=== PATIENT | male | born 1950 | race Caucasian/White ===

== ENCOUNTER 2016-10-08 14:37 | Inpatient (IN) ==
--- NOTE | 2016-10-08 15:47 | Emergency Department Note ---
Disposition Clinical Impression: Left-sided sensory deficit present Disposition: Admitted As Inpatient Condition: Good Neuro HPI - General Chief Complaint: ED Neuro Symptoms/Deficit Stated Complaint: left leg numbness Time Seen by Provider: 10/08/16 14:42 Source: patient, EMS Limitations: no limitations Nursing Notes Reviewed: Yes Vital Signs Reviewed: Yes - History of Present Illness HPI Narrative: 66-year-old male presents to the emergency department with a chief complaint of left-sided numbness. Yesterday around 2 AM (14 hours) he woke up with severe numbness and heaviness of the left side of his body. He went to a local ER where he had labs drawn and a CT scan of his head and was told everything was normal and was discharged home. He wanted to come back to [place] because [facility] and this is what he preferred to do for follow-up. He reports the heaviness in his arm and leg has improved but he still has significant numbness in his left arm and left leg. He reports numbness in the left chest and left abdomen. No history of stroke in the past. He has a history of prostate cancer that he never had any sort of surgery, chemotherapy or radiation. He has a history of hypertension on lisinopril and amlodipine but no other medical problems or medications. He denies any visual changes. He states he has a chronic droop of the left side of the face due to a significant facial injury and states that it has not changed from baseline. Denies any substernal chest pain, diaphoresis, nausea or vomiting. Denies any pain radiating to his back. - Related Data Home Medications: Home Medications Medication Instructions Recorded Confirmed Aspirin 81 mg PO DAILY PRN 10/08/16 10/08/16 Atorvastatin Calcium [Lipitor] 20 mg PO HS 10/08/16 10/08/16 Calcium Carbonate/Vitamin D3 2 each PO BID 10/08/16 10/08/16 [Calcium 250+D Tablet] Clotrimazole 1% CRM [Lotrimin 1%] 1 appl TP BID 10/08/16 10/08/16 Allergies/Adverse Reactions: Allergies Allergy/AdvReac Type Severity Reaction Status Date / Time IV DYE Allergy Anaphylaxis Uncoded 10/08/16 14:43 All systems ED: reviewed and negative except as stated. Constitutional: Denies: fever Eyes: Denies: vision change Cardiovascular: Denies: chest pain Respiratory: Denies: cough, dyspnea Gastrointestinal: Denies: abdominal pain, nausea, vomiting Musculoskeletal: Denies: back pain, neck pain Integumentary: Denies: rash Neurological: Reports: numbness (Left-sided), paresthesias (Left-sided). Denies : headache, abnormal gait Past Medical History - Past Medical History Attestation: Yes The following information was validated with the patient. Medical history: Reports: cancer, hyperlipidemia, other Psychiatric history: Reports: no psych history - Social History Smoking Status: Former smoker Smokeless Tobacco Status: No Alcohol use: Reports: none Drug use: Reports: none Physical Exam General: Appears well, alert and oriented x 3 Cardiovascular: Regular rate and rhythm. S1, S2. No murmurs, rubs or gallops. Respiratory: Breath sounds clear bilaterally. No wheezing, rales or rhonchi. No resp distress Abdomen: Soft, nontender. No guarding, rebound or rigidity. Eyes: Left-sided eye droop. EOMI. Pupils equally reactive to light both direct and consensual HENT: No oral mucosal lesions. Moist mucous membranes Neuro: Slight left corner of the mouth droop, slight upper eyelid droop but patient states this is baseline. Normal wrinkles of the forehead and facial muscles when smiling. Strength is very symmetric at the shoulder, elbow, wrist , hip, knee, ankle. He reports diffuse decreased sensation particularly throughout the leg, abdomen and left arm that does not cross midline. He even has some mild sensory deficits of the left face. Musculoskeletal: No joint tenderness or swelling Skin: No lesions. No diaphoresis. Normal turgor. Normal color Psych: Appropriate - General Limitations: no limitations General appearance: alert, in no apparent distress Course Course Narrative: At this time I am concerned patient has suffered a cerebrovascular event affecting the sensory distribution. He has diffuse left-sided numbness. He took 4 baby aspirins about 14 hours ago. Patient is not a TPA candidate because he is far outside of the 3 hour window. Vital Signs Temperature 97.8 F 10/08/16 14:43 Pulse Rate 72 10/08/16 14:43 Respiratory Rate 18 10/08/16 14:43 Blood Pressure 156/106 10/08/16 14:43 O2 Sat by Pulse Oximetry 100 10/08/16 14:43 Temperature 97.8 F 05/12/17 17:37 Pulse Rate 76 10/08/16 17:39 Respiratory Rate 18 10/08/16 17:39 Blood Pressure 159/101 10/08/16 17:39 O2 Sat by Pulse Oximetry 95 10/08/16 17:37 Oxygen Delivery Oxygen Delivery Room Air Neuro Symptoms/Deficit - MDM Narrative Medical decision making narrative: EKG shows sinus rhythm with a rate of 60 bpm. There is no ST elevation or depression. OR, QRS, QT interval within normal limits. T-wave flattening in lead 3. Troponin was drawn at the [facility] which was 0. NIH Stroke Scale - Level of Consciousness LOC: Alert - LOC Questions LOC Questions: Answers both correctly - LOC Commands LOC Commands: Performs both correctly - Best Gaze Best Gaze: Normal - Visual Visual: No visual loss - Facial Palsy Facial Palsy: Minor asymmetry on smiling, flattened nasolabial fold - Motor Arms Motor Arm-Left: No drift for 10 seconds Motor Arm-Right: No drift for 10 seconds - Motor Legs Motor Leg-Left: No drift for 5 seconds Motor Leg-Right: No drift for 5 seconds - Limb Ataxia Limb Ataxia: Absent of affected limb too weak to perform exam - Sensory Sensory: Normal - Best Language Best Language: No aphasia - Dysarthria Dysarthria: Normal - Extinction and Inattention Extinction and Inattention: Normal - NIHSS Total Score NIHSS Total Score: 1 Attestation Statement - Attestation Attestation: I examined this patient and my medical decision-making was reviewed with the RN NAVIGATOR/PA/Advanced Practice Nurse/Resident Physician. I agree with the documented findings, disposition and treatment plan as described except to the extent set forth below. 66-year-old male presents EDB has a left-sided numbness. Last evening he developed onset of numbness and heaviness of his left arm, face, leg. He was seen at an outside facility in [place]. He underwent CT of his head which was negative for any acute process and he was discharged home. He presented to the [facility] in [place] today because of ongoing heaviness and numbness of his left side. They transferred him here for neurology evaluation. Currently he states the weakness is improved. He denies any focal pain. Describes worsening paresthesia of his left arm and left leg. Denies any neck pain. No headache. No visual disturbances. No difficulty swallowing. No speech trouble. No chest pain or dyspnea. No recent trauma. Generally well-appearing male in no apparent distress. He is talkative and interactive. Pupils are reactive to light. Extraocular motor intact. Oropharynx is clear. Tongue and uvula are midline. Neck supple without adenopathy. No bruits are appreciated. Chest is clear to auscultation bilaterally. Cardiac exam regular. Abdomen soft non-distended, non-tender. Neurologically has diminished sensation in nondermatomal distribution on his left leg and left torso. No strength deficits are appreciated. He has no pronator drift. He is admitted to the hospital for further evaluation of CVA.
[2016-10-08] MEDS ORDERED: Ondansetron 4 MG/2 ML VIAL IVP PRN (16:59)
[2016-10-08] MEDS ORDERED: Acetaminophen 325 MG TABLET PO PRN (16:59)
[2016-10-08] MEDS ORDERED: MOM Conc 10 ML UD.LIQ PO PRN (16:59)
[2016-10-08] MEDS ORDERED: Mag Hydrox/Al Hydrox/Simeth 30 ML UDC PO PRN (16:59)
[2016-10-08] MEDS ORDERED: Naloxone 0.4 MG/ML INJ IVP PRN (16:59)
[2016-10-08] MEDS ORDERED: Aspirin 81 MG TAB.CHEW PO PRN (17:01)
--- NOTE | 2016-10-08 18:23 | Internal Med History&Physical ---
Date of Encounter: 10/08/16 Time of Encounter: 18:15 Assessment and Plan (1) CVA (cerebral vascular accident) Current visit: Yes Status: Suspected Pt appears to have had an acute CVA most likely related to HTN and HLD. He is not consistently taking his meds so will place on ASA 325mg daily (he took early this AM). Statin. Lipid panel. PT/OT Check MRI/MRA and carotid duplex. Echocardiogram. Telemetry. Neuro consult. Qualifiers: CVA mechanism: thrombosis Precerebral and cerebral artery: middle cerebral artery Laterality of affected vessel: left Qualified Code(s): I63.312 - Cerebral infarction due to thrombosis of left middle cerebral artery (2) HTN (hypertension) Current visit: Yes Status: Chronic Will allow some measure of permissive hypertension. Qualifiers: Hypertension type: essential hypertension Qualified Code(s): I10 - Essential (primary) hypertension (3) HLD (hyperlipidemia) Current visit: Yes Status: Chronic Lipid panel in AM. Statin. Qualifiers: Hyperlipidemia type: unspecified Qualified Code(s): E78.5 - Hyperlipidemia , unspecified (4) Prostate cancer Current visit: Yes Status: Chronic Has had no prior treatment. (5) Arthritis Current visit: Yes Status: Chronic Internal Medicine - H&P: HPI Chief complaint: L side numbness Admitted From: Emergency Dept Plans for Post Hospital Care: Home History of present illness: Mr. Gautam is a 66 year old male with hx of HTN and HLD presented to ED from [place] with complaints of L side numbness and heaviness. He noticed the symptoms about midnight last night. He was in [place] and went to an ED. There he had CT and blood work and was told not a stroke (per patient). His symptoms persisted and he drove home and went to [place] here. He was then sent to ED. Here in ED he was evaluated and admitted for presumptive stroke. Currently patient is still experiencing persistent numbness and heaviness on his whole L side. He also says he has been dropping things with his L hand. Pt denies prior history of similar event. He has hx of trauma to his L face and has chronic droop to his mouth and eye. He is to take antihypertensive and cholesterol meds as well as ASA but does not take these regularly. He denies chest pain or SOB. No difficulty swallowing. No difficulty with ambulation. Says the feeling seems to "go up and down" but never goes totally away. [facility] [place] BP in ED was 184/116. CT neg for acute process in brain. Given Norvasc 10mg and Lisinopril 10mg prescriptions. BP at discharge from ED was 158/96. Past Med Surg Social Fam HX - Past Medical History Source: patient, old records reviewed, nursing notes reviewed Medical history: arthritis, cancer (Prostate cancer - was told to have surgery but he did not want.), hyperlipidemia, hypertension, other Psychiatric history: no psych history - Past Surgical History Surgical History: no surgical history - Social History Smoking Status: Former smoker Smokeless Tobacco Status: No Alcohol use: none Drug use: none Occupational status: retired Current living situation: Home - Independent Activity Level: Independent ambulation Recent Out of Country Travel Within the Last 8 Weeks: No Exposure or Possible Exposure to Illness During Travel: No - Family History Mother Living Status: Cause of : Pancreatic and liver cancer Hx Family Cancer: Yes Father Living Status: Still Living (Patient says has no med issues.) Brother Hx Family Cardiac Disorders: Yes (thoracic aneurysm) Internal Medicine - H&P: Meds Aspirin 81 mg PO DAILY PRN 10/08/16 [History] Atorvastatin Calcium [Lipitor] 20 mg PO HS 10/08/16 [History] Calcium Carbonate/Vitamin D3 [Calcium 250+D Tablet] 2 each PO BID 10/08/16 [ History] Clotrimazole 1% CRM [Lotrimin 1%] 1 appl TP BID 10/08/16 [History] Allergies IV DYE Allergy (Uncoded 10/08/16 14:43) Anaphylaxis All Systems PM: A 10-system review of systems was performed and is negative for pertinent findings except as documented above in the HPI. - Constitutional Constitutional: no anorexia, no falls, no weakness - EENT Eyes: no blurry vision, no change in vision, no diplopia Ears: no decreased hearing, no ear pain Nose, mouth and throat: no change in voice, no dysphagia, no neck pain - Cardiovascular Cardiovascular ROS IM: no chest pain, no claudication, no diaphoresis, no dyspnea on exertion, no orthopnea, no palpitations - Respiratory Respiratory: no dyspnea, no hemoptysis, no wheezing, no pain on inspiration - Gastrointestinal Gastrointestinal: no abdominal pain, no change in bowel habits, no change in stool character, no hematemesis, no hematochezia, no melena, no odynophagia - Genitourinary Genitourinary ROS male: no difficulty urinating Additional comments: Has hx of prostate cancer. - Musculoskeletal Musculoskeletal ROS IM: back pain (Chronic low back pain), no arthralgias, no joint swelling, no limited range of motion - Integumentary Integumentary IM: no erythema, no new lesions - Neurological Neurological ROS: headache(s), numbness, paresthesias, tingling, no confusion, no disequilibrium, no loss of vision - Psychiatric Psychiatric: as per HPI - Endocrine Endocrine IM: as per HPI - Hematologic/Lymphatic Hematologic/Lymphatic: as per HPI - Allergic/Immunologic Allergic/Immunologic: as per HPI - Constitutional Vitals: Temp Pulse Resp BP Pulse Ox 97.8 F 76 18 159/101 95 10/08/16 17:37 10/08/16 17:39 10/08/16 17:39 10/08/16 17:39 10/08/16 17:37 General appearance: Present: mild distress, A&O X 3, answers questions appropriately - Head Head exam: Present: normocephalic Additional comments: Chronic changes to L face - unchanged per patient. - Eye Eye exam: Present: conjuntiva pink, sclera anicteric. Absent: periorbital swelling, periorbital tenderness Pupils: Present: PERRL Additional comments: L lid drooped slightly. - ENT ENT exam: Present: mucous membranes moist - Respiratory Respiratory exam: Present: CTAB. Absent: rales, rhonchi, wheezes - Cardiovascular Cardiovascular exam: Present: RRR. Absent: systolic murmur, tachycardia - GI/Abdominal GI/Abdominal exam: Present: normal bowel sounds, soft. Absent: mass, tenderness - Extremities Exam Extremities exam: Present: warm. Absent: pedal edema, tenderness - Neurological Exam Neurological exam: Present: alert, oriented X3 Additional comments: Decreased sensation to L face, arm and leg. NIH 1. No ataxia noted. Strength appears to be equal. - Psychiatric Psychiatric exam: Present: anxious - Skin Skin exam: Present: dry, warm. Absent: rash - VTE Documentation of Mechanical Device: Intermittent pneumatic compression device
[2016-10-08] MEDS: (Calcium Carbonate/Vitamin D3 [Calcium 250+D Tablet] ) PO SCH (21:56)
[2016-10-09 04:44] LABS: Basophils % 0.6 %; Eosinophils # 0.2 K/mcL (0.0-0.6); Eosinophils % 2.9 %; Hematocrit 44.2 % (37.5-50.1); Hemoglobin 14.8 g/dL (12.9-16.9); Immature Granulocytes % 0.4 % (0-4); Lymphocytes # 1.1 K/mcL (0.6-4.6); Lymphocytes % 21.1 %; Mean Corpuscular HGB Conc 33.5 g/dL (31.6-35.5); Mean Corpuscular Hemoglobin 29.6 pg (28.0-33.3); Mean Corpuscular Volume 88.4 fL (83.0-100.0); Mean Platelet Volume 10.4 fL (9.4-12.4); Monocytes # 0.5 K/mcL (0.0-1.3); Monocytes % 10.3 %; Neutrophils # 3.3 K/mcL (1.6-8.9); Platelet Count 188 K/mcL (140-400); Segmented Neutrophils % 64.7 %
[2016-10-09 05:03] LABS: Alanine Aminotransferase 32 Units/L (0-55); Albumin 3.5 g/dL (3.5-5.0); Albumin/Globulin Ratio 1.2 (1.1-2.2); Alkaline Phosphatase 80 Units/L (38-126); Aspartate Amino Transferase 24 Units/L (5-34); BUN/Creatinine Ratio 17 (6-26); Bilirubin,Total 0.7 mg/dL (0.2-1.2); Blood Urea Nitrogen 16 mg/dL (8-26); Calcium 8.9 mg/dL (8.6-10.8); Carbon Dioxide 27 mEq/L (19-29); Chloride 104 mEq/L (98-109); Chol/HDL Ratio 5.4 (0-4.9); Cholesterol 273 mg/dL (< 200); Globulin 2.9 g/dL (2.4-3.5); Glucose 125 mg/dL (70-99); HDL Cholesterol 51 mg/dL (40-59); LDL Cholesterol,Calculated 193 mg/dL (0-99); Magnesium 2.1 mg/dL (1.6-2.6); Osmolality,Calculated 291 (280-300); Potassium 3.9 mEq/L (3.5-4.5); Sodium 139 mEq/L (136-145); Total Protein 6.4 g/dL (6.0-8.3); Triglycerides 144 mg/dL (< 150); eGFR For African Americans > 60 (> 60); eGFR For Non-African Americans > 60 (> 60)
[2016-10-09] MEDS ORDERED: *HR* Enoxaparin 30 MG/0.3 ML SYRINGE SQ SCH (06:00)
[2016-10-09] MEDS ORDERED: Aspirin 325 MG TABLET PO SCH (09:00)
[2016-10-09] MEDS: (Calcium Carbonate/Vitamin D3 [Calcium 250+D Tablet] ) PO SCH (10:03)
--- NOTE | 2016-10-09 10:52 | Neurosurgical History&Physical ---
Date of Encounter: 10/09/16 Time of Encounter: 10:37 Assessment and Plan (1) CVA (cerebral vascular accident) Current visit: Yes Status: Suspected Right thalamic lacunar infacrt. Likely secondary to multiple factors: hypertension, hyperlipidemia, ?medical incompliace? Agree with increasing lipitor to 80, will add niacin. Needs outpatient neurology follow-up with DR. George. 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 Amitriptyline and gabapentin are good choices. Given that he also seems to have an early neuropathy, gabapentin may be a first choice trial, 300 qhs as a startig dose, to go to 300 tid final. If needed can be fine tuned in the outpatient setting or changed to amitriptyline. History of Present Illness Chief complaint: left-sided numbness, weird feeling HPI: Mr. Gautam is a 66 year old male with prior history of "pre-diabetes", TIAs, ?stroke, with hypertension, hyperlipidemia, who had a sudden episode of half body numbness that started yesterday when he was driving from [place]. Initially, he went to an ER in [place], where they said nothing was wrong(?). [facility] and he was told that he may have had a stroke and was sent to [place] ER. he was outside the stroke window for treatment, per ER. He described his sensations on the left to be a "stiff feeling of arms", not necessarily weak, but a "feeling of arms and legs and torso and face falling asleep and waking up", like pins and needles, that "exactly" split the half of his body, the left being affected. He lives by himself. And he has been on 20 mg lipitor at home , prior to this. He took 4 baby Aspirins yesterday when it happened. He got CTH and MRI brain done overnight yesterday here. He state that today, he is fine and back to normal. He states that he has had face trauma (left) and that he has a mild droop on the left side all the time. Past Med Surg Social Fam HX - Past Medical History Medical history: cancer, CVA (questionable), hyperlipidemia, TIA, other Psychiatric history: no psych history - Past Surgical History Surgical History: no surgical history - Social History Smoking Status: Former smoker Smokeless Tobacco Status: No Alcohol use: none Drug use: none Occupational status: retired Current living situation: Home - Independent Activity Level: Independent ambulation Recent Out of Country Travel Within the Last 8 Weeks: No Exposure or Possible Exposure to Illness During Travel: No - Family History Mother Living Status: Cause of : Pancreatic and liver cancer Hx Family Cancer: Yes Father Living Status: Still Living (Patient says has no med issues.) Brother Hx Family Cardiac Disorders: Yes (thoracic aneurysm) Medications and Allergies Aspirin 81 mg PO DAILY PRN 10/08/16 [History] Atorvastatin Calcium [Lipitor] 20 mg PO HS 10/08/16 [History] Calcium Carbonate/Vitamin D3 [Calcium 250+D Tablet] 2 each PO BID 10/08/16 [ History] Clotrimazole 1% CRM [Lotrimin 1%] 1 appl TP BID 10/08/16 [History] Allergies IV DYE Allergy (Uncoded 10/08/16 14:43) Anaphylaxis All Systems: A 10-system review of systems was performed and is negative for pertinent findings except as documented above in the HPI. - Constitutional Constitutional ROS IM: as per HPI, no chills, no fever(s), no weakness - Integumentary Integumentary IM: as per HPI - Neurological Neurological ROS: numbness (left side), paresthesias (left side), sensory deficit (left side), tingling (left side) Physical Examination - Vital Signs Vital Signs: Initial Vital Signs Temp Pulse Resp BP Pulse Ox 97.8 F 72 18 156/106 100 10/08/16 14:43 10/08/16 14:43 10/08/16 14:43 10/08/16 14:43 10/08/16 14:43 Vital Signs - 24 hr 10/08/16 14:43 10/08/16 15:17 10/08/16 16:42 Temperature 97.8 F Pulse Rate 72 61 Respiratory Rate 18 18 18 Blood Pressure 156/106 145/98 135/90 O2 Sat by Pulse Oximetry 95 95 10/08/16 17:37 10/08/16 17:39 10/09/16 00:00 Temperature 97.8 F 98.1 F Pulse Rate 64 76 63 Respiratory Rate 15 18 18 Blood Pressure 159/101 137/103 O2 Sat by Pulse Oximetry 95 95 10/09/16 04:00 10/09/16 06:58 Temperature 97.6 F 98.2 F Pulse Rate 64 66 Respiratory Rate 16 18 Blood Pressure 129/84 156/97 O2 Sat by Pulse Oximetry 95 96 - Constitutional General appearance: comfortable - Neurologic Sensorimotor examination: intact (left hemisensory syndrome) Detailed motor examination: full strength in all major muscle groups Motor examination - right side: 5/5: deltoids, biceps, triceps, wrist flexion, wrist extension, automatic vulcanizing operator, hip flexors, tibialis Anterior, quadriceps, toe extension (EHL), plantarflexion Motor examination - left side: 5/5: deltoids, biceps, triceps, wrist flexion, wrist extension, hip flexors, automatic vulcanizing operator, quadriceps, tibialis Anterior, toe extension (EHL), plantarflexion Detailed sensory examination: light touch (left hemisensory syndrome), pain ( left hemisensory syndrome), temperature (normal), vibration (normal), position sense (decreased distally) Reflex and gait examination: intact Reflexes: Biceps: 2+ (asymmetric hyper-reflexia on the left), Triceps: 2+ ( asymmetric hyper-reflexia on the left), Brachioradialis: 2+ (asymmetric hyper- reflexia on the left), Patella: 2+ (asymmetric hyper-reflexia on the left), Achilles: 2+ (asymmetric hyper-reflexia on the left) Mental Status Examination: awake, alert, oriented to person, oriented to place, oriented to time, follows commands appropriately, answers questions appropriately, no agnosia, no aphasia, no aproxia Cranial nerve examination: PERRL, EOMI, visual jaquez intact, corneal reflexes brisk symmetrically, sensory to face intact, mastication intact, no facial asymmetry is present, no dysarthria, hearing is intact symmetrically, soft palate elevates bilaterally upon phonation, gag reflex intact, flexes SCM and trapezius muscles symmetrically with full power, tongue protrudes midline, no atrophy or facial fasiculations present Cerebellar examination: no dysmetria, performs finger to nose and heel to montero symmetrically without ataxia, no gait ataxia, no truncal ataxia, no difficulty with rapid alternating movements Results - Laboratory Findings CBC and BMP: 10/09/16 03:40 10/09/16 03:40 Abnormal lab findings: Abnormal lab results Glucose 125 mg/dL (70-99) H 10/09/16 03:40 Cholesterol 273 mg/dL (< 200) H 10/09/16 03:40 LDL Cholesterol, Calc 193 mg/dL (0-99) H 10/09/16 03:40 Cholesterol/HDL Ratio 5.4 (0-4.9) H 10/09/16 03:40 - Diagnostic Findings Additional findings: Brain MRI 10/08/16 17:07 IMPRESSION: 1. Acute ischemic lacunar infarct in the right thalamus. 2. No intracranial hemorrhage or mass effect. 3. Mild chronic white matter microvascular ischemic changes. 4. Absent signal in the visualized distal cervical through proximal intracranial right vertebral artery concerning for high-grade proximal stenosis or occlusion. CT angiogram of the neck is recommended for further evaluation. D/ / Ravinder Begum MD / Ravinder Begum MD Interpreting Provider: Ravinder Begum MD Head MRA 10/08/16 17:07 IMPRESSION: 1. Acute ischemic lacunar infarct in the right thalamus. 2. No intracranial hemorrhage or mass effect. 3. Mild chronic white matter microvascular ischemic changes. 4. Absent signal in the visualized distal cervical through proximal intracranial right vertebral artery concerning for high-grade proximal stenosis or occlusion. CT angiogram of the neck is recommended for further evaluation. D/ / Ravinder Begum MD / Ravinder Begum MD Interpreting Provider: Ravinder Begum MD - VTE Documentation of Mechanical Device: Intermittent pneumatic compression device
[2016-10-09 11:03] VITALS: BP 153/111
--- NOTE | 2016-10-09 12:28 | Carotid Imaging Report ---
Carotid Duplex Patient Name:All Gautam Order Number:[id number] Procedure Date:10/09/2016 Date:8Age:66 yrs Gender:Male Rt.BP:156 / 97 mmHgHeart Rate: Location:[facility] Room #: 2ne30 Service Coordinator:Moisés Hdez, [facility] Referring MD:DO Ellie Alvarez MD:Sergio Ding MD , FACS Primary Indications:Occlusion and stenosis of carotid artery without mention of cerebral infarction Risk Factors Yes/No Hypertension Yes Hypercholesterolemia Impressions: Findings: Bilateral carotid system are essentially normal. Findings Carotid Duplex: Snow scale imaging combined with Doppler flow analysis suggests normal findings bilaterally. Right: The right proximal common carotid artery has a PSV of 76 cm/s and a EDV of 18 cm/s. The right mid common carotid artery has a PSV of 73 cm/s and a EDV of 22 cm/s. The right distal common carotid artery has a PSV of 58 cm/s and a EDV of 18 cm/s. The right bifurcation has a PSV of 50 cm/s and a EDV of 16 cm/s. The right proximal internal carotid artery has a PSV of 37 cm/s and a EDV of 13 cm/s. The right mid internal carotid artery has a PSV of 53 cm/s and a EDV of 21 cm/s. The right distal internal carotid artery has a PSV of 69 cm/s and a EDV of 30 cm/s. The right eca has a PSV of 57 cm/s and a EDV of 12 cm/s. The right vertebral artery has a PSV of 23 cm/s and a EDV of 2 cm/s. Left: The left proximal common carotid artery has a PSV of 73 cm/s and a EDV of 18 cm/s. The left mid common carotid artery has a PSV of 57 cm/s and a EDV of 15 cm/s. The left distal common carotid artery has a PSV of 56 cm/s and a EDV of 16 cm/s. The left bifurcation has a PSV of 52 cm/s and a EDV of 15 cm/s. The left proximal internal carotid artery has a PSV of 47 cm/s and a EDV of 17 cm/s. The left mid internal carotid artery has a PSV of 58 cm/s and a EDV of 25 cm/s. The left distal internal carotid artery has a PSV of 60 cm/s and a EDV of 21 cm/s. The left eca has a PSV of 56 cm/s and a EDV of 12 cm/s. The left vertebral artery has a PSV of 63 cm/s and a EDV of 23 cm/s. Prior Study: No prior study available for comparison. Carotid Results Right PSV EDV Assessment Proximal CCA 76 18 Mid CCA 73 22 Distal CCA 58 18 Bifurcation 50 16 Proximal ICA 37 13 Mid ICA 53 21 Distal ICA 69 30 ECA 57 12 Vertebral Artery 23 2 Left PSV EDV Assessment Proximal CCA 73 18 Mid CCA 57 15 Distal CCA 56 16 Bifurcation 52 15 Proximal ICA 47 17 Mid ICA 58 25 Distal ICA 60 21 ECA 56 12 Vertebral Artery 63 23 Ratio's Right ICA/CCA Ratio: 0.95 ICA/CCA Values: 69/73 Left ICA/CCA Ratio: 1.05 ICA/CCA Values: 60/57 Updated by Sergio Ding MD, FACS on 10/09/2016 12:23:41 PM Sergio Ding MD electronically signed on 10/09/2016 12:24:47 PM with status of Final
--- NOTE | 2016-10-09 13:13 | Discharge Summary ---
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 (3) HTN (hypertension) Priority: Secondary Status: Chronic Qualifiers: Hypertension type: essential hypertension Qualified Code(s): I10 - Essential (primary) hypertension (4) HLD (hyperlipidemia) Priority: Secondary Status: Chronic Qualifiers: Hyperlipidemia type: mixed hyperlipidemia Qualified Code(s): E78.2 - Mixed hyperlipidemia (5) Prostate cancer Priority: Secondary Status: Chronic (6) Arthritis Priority: Secondary Status: Chronic - Discharge Medications Prescriptions: Atorvastatin [Lipitor] 80 mg PO HS #30 tablet Gabapentin [Neurontin] 300 mg PO HS #100 capsule Niacin [Endur-Acin] 250 mg PO HS #30 tablet.er Nitroglycerin [Nitrostat] 0.4 mg SL Q5-6MIN PRN #1 unit PRN Reason: Chest Pain Home Medications: Calcium Carbonate/Vitamin D3 [Calcium 250+D Tablet] 2 each PO BID 10/08/16 [ History] Clotrimazole 1% CRM [Lotrimin 1%] 1 appl TP BID 10/08/16 [History] Aspirin 325 mg PO DAILY tablet 10/09/16 [Rx] Atorvastatin [Lipitor] 80 mg PO HS #30 tablet 10/09/16 [Rx] Gabapentin [Neurontin] 300 mg PO HS #100 capsule 10/09/16 [Rx] Niacin [Endur-Acin] 250 mg PO HS #30 tablet.er 10/09/16 [Rx] Nitroglycerin [Nitrostat] 0.4 mg SL Q5-6MIN PRN #1 unit 10/09/16 [Rx] amLODIPine [Norvasc] 10 mg PO DAILY tablet 10/09/16 [Rx] Allergies/Adverse Reactions: Allergies lisinopril Adverse Reaction (Verified 10/09/16 13:23) Cough IV DYE Allergy (Uncoded 10/08/16 14:43) Anaphylaxis Date of admission: 10/08/16 19:18 [facility] care physician: [facility] Consults: Neurology Discharging clinician: Zack Casanova Anticipated date of discharge: 10/09/16 - Patient Status Disposition: Home, Self-Care Condition: Good Overall status at discharge: patient is progressing back to baseline - Discharge Instructions Follow Up With: [facility],PCP [Primary Care Provider] - Marc George DO [Partnered Physician] - (Needs follow up for acute CVA hospitalization. ) - Diet and Activity Activity: increase activity as tolerated Diet: low fat, low cholesterol Hospital course: Mr. Gautam is a 66 year old male with hx of HTN and HLD sent to ED from [place] [facility] with L side tingling. Symptoms had started during the night and he drove home from [place] and went to [place]. In ED he was evaluated and subsequently admitted. Mr. Gautam was admitted to [facility]. He had presumptive CVA and MRI/MRA ordered. He was started on ASA, statin. Lipid profile and neuro consult ordered. He did well overnight. BP elevated and ultimately meds restarted. MRI was positive for thalamic CVA on R. He was evaluated by neurology and med changes made. He was educated on the need to take meds routinely. On 10/09 he was afebrile. BP elevated but Norvasc restarted. He was felt stable for discharge home. He did well overnight and had no new neurologic issues. - Time Spent with Patient Total time spent providing and/or coordinating discharge services: 40min - Constitutional Vitals: Temp Pulse Resp BP Pulse Ox 97.6 F 60 16 153/111 97 10/09/16 10:56 10/09/16 10:56 10/09/16 10:56 10/09/16 10:56 10/09/16 10:56 General appearance: Present: A&O X 3, pleasant, answers questions appropriately - Head Head exam: Present: normocephalic - Eye Eye exam: Present: conjuntiva pink (L eye droop) - ENT ENT exam: Present: mucous membranes moist - Respiratory Respiratory exam: Present: decreased breath sounds, CTAB. Absent: rales, wheezes - Cardiovascular Cardiovascular exam: Present: RRR. Absent: tachycardia - GI/Abdominal GI/Abdominal exam: Present: soft. Absent: tenderness - Extremities Exam Extremities exam: Present: warm. Absent: pedal edema, tenderness - Neurological Exam Neurological exam: Present: alert - Psychiatric Psychiatric exam: Present: anxious - Skin Skin exam: Present: warm. Absent: rash - VTE Documentation of Mechanical Device: Intermittent pneumatic compression device
[2016-10-09] MEDS ORDERED: amLODIPine 5 MG TABLET PO SCH (13:30)
--- NOTE | 2016-10-09 17:05 | ECHO - Doppler Report ---
Echo with Saline Contrast Name: All Gautam Date of Study: 10/09/2016 Date: 1950 Ht: 68.0 in Medical Record#: [id number] Age: 66 Wt: 195.0 lb Gender: Male BSA: 2.02 Order #: [id number] Location: [facility] Room #: 2ne16 Reading Physician: Phi Birmingham DO, MARTA GREGORIO Staining Machine Operator: Moisés Hdez RDCS Ordering Physician: Zcak Casanova DO Primary Physician: Indications: Cerebrovascular Accident Impressions: LVEF 60-65%. Normal LV chamber size and function. Mild asymmetric hypertrophy of the basal septum. Mild left ventricular diastolic dysfunction. Normal right ventricular structure and function. No evidence of PFO with agitated saline contrast. No evidence of pulmonary hypertension. No significant valvular dysfunction. Left Ventricular Wall Motion: Rest Echo Findings All wall segments showed normal motion. Findings: Study Quality * Technically adequate exam. ECG Findings * Normal sinus rhythm. Left Ventricle * LVEF 60-65%. * Normal LV chamber size and function. * Mild asymmetric hypertrophy of the basal septum. * Mild left ventricular diastolic dysfunction. Right Ventricle * Normal right ventricular structure and function. Left Atrium * Normal left atrial size. Right Atrium * Normal right atrial size. Interatrial Septum * No evidence of PFO with agitated saline contrast. Aortic Valve * Trileaflet aortic valve. * Mildly sclerotic aortic valve leaflets. * Trace aortic regurgitation. * No aortic stenosis. Mitral Valve * Normal mitral valve structure and function. * No mitral stenosis. * No mitral regurgitation. Tricuspid Valve * Normal tricuspid valve structure and function. * Trace tricuspid regurgitation. * No evidence of pulmonary hypertension. Pulmonic Valve * Normal pulmonic valve structure and function. * No pulmonic regurgitation. Aorta * Normally sized aortic root. Pericardium * The pericardium appears normal. IVC * Normal IVC dimensions and inspiratory collapse. Pulmonary Artery * Normal visualized portions of the main pulmonary artery. History Hypertension Hypercholesteremia Contrast: Agitated saline 2 ml. Measurements: BP: 156/ 97 2D Normal Values RVIDd: 2.60 cm <2.7 cm IVSd: 1.40 cm 0.6 - 1.0 cm LVIDd: 4.40 cm 3.7 - 5.6 cm LVPWd: 1.00 cm 0.6 - 1.1 cm LVIDs: 2.30 cm 1.5 - 3.6 cm AO: 2.80 cm < 4.0 cm LA: 2.80 cm 2.0 - 4.0cm %FS: 47.70 cm >25 % LA volume: 27 Mitral Valve Peak E:.58 m/sec Peak A:.60 m/sec E/A Ratio:1 Peak E' Lat Dilip:8.77 cm/s Peak E' Med Dilip:6.82 cm/s E/E' Lat Ratio:6.6 E/E' Med Ratio:8.5 Tricuspid Valve TV Regurg Peak Grad: 9.00mmHg TV Regurg Peak Dilip: 1.48m/sec Updated by Phi Birmingham DO, FACSudarshan, MARTA, KATHRYN on 10/09/2016 4:57:35 PM electronically signed on 10/09/2016 4:58:50 PM with status of Final Wall Motion [place]: 1=Normal, 2=Hypokinesis, 3=Akinesis, 4=Dyskinesis, 5=Aneurysmal, 6=Hyperkinetic, X=Not Visualized (Blank)=Missing
[2016-10-09] MEDS ORDERED: Niacin (24 HR) 500 MG TAB.ER.24H PO SCH (21:00)
[2016-10-09] MEDS ORDERED: Gabapentin 300 MG CAPSULE PO SCH (21:00)
--- NOTE | 2016-10-10 12:28 | Electrocardiograph Report ---
[place] [id number] Test Date: 2016-10-08 Pat Name: All Gautam Department: 105 Room: 2NE16 Gender: M [employer]ement Mixer: DARLING : 1950 Requested By: Zack Casanova Order Number: [id number] Reading MD: Roge Garcia Measurements Intervals [place] Rate: 60 P: 20 [place]: 211 QRS: -11 QRSD: 76 T: -2 QT: 395 QTc: 397 Interpretive Statements SINUS RHYTHM WITH FIRST DEGREE AV BLOCK NONSPECIFIC T-WAVE ABNORMALITY Electronically Signed On 10-10-2016 12:27:50 EDT by Roge Garcia
== END 2016-10-09 15:21 | disposition home or self-care (01) | DRG 66 ==
LOC: 2NENU 14:37 → EMEROO 14:37 → 2NENU 17:39
PROVIDERS: ADMIT Internal Medicine; ATTEND Internal Medicine